=== PATIENT | male | born 1970 | race Caucasian/White ===

== ENCOUNTER 2017-09-14 07:13 | Emergency (ER) | payer BC ==
[2017-09-14 08:04] LABS: #Eosinphils 0.3 thou/uL (0.0-0.7); #Monocytes 0.8 thou/uL (0.11-0.59); #Neutrophils 4.2 thou/uL (1.40-6.50); %Basophils 0.6 % (0.0-1.0); %Eosinophils 4.3 % (0.0-10.0); %Lymphocytes 26.8 % (21.0-51.0); %Monocytes 10.5 % (0.0-10.0); %Neutrophils 57.7 % (42.0-75.0); Hemoglobin 16.4 g/dL (14.0-18.0); Mean Corpuscular HGB CONC 35.4 g/dL (32.0-36.0); Mean Corpuscular Hemoglobin 33.3 pg (27.0-31.0); Mean Corpuscular Volume 94.1 fL (78.0-98.0); Mean Platelet Volume 8.1 fL (7.4-10.4); Platelet Count 127 thou/uL (130-400); RBC Distribution Width 11.6 % (11.5-14.5); Red Blood Cell (RBC) Count 4.91 mill/uL (4.70-6.10); White Blood Cell (WBC) Count 7.3 thou/uL (4.8-10.8)
[2017-09-14 08:12] LABS: INR-International Normal Ratio 1.1; PTT 27.8 SEC (22.9-36.1); Prothrombin Time 14.4 SEC (12.0-14.7)
[2017-09-14 09:10] LABS: ALT (SGPT) 50 U/L (8-55); AST (SGOT) 51 U/L (5-34); Albumin 3.8 g/dL (3.5-5.0); Alkaline Phosphatase 74 U/L (40-150); Anion Gap 18 mmol/L (10-20); BUN (Urea Nitrogen) 8 mg/dL (8.9-20.6); CKMB 2.2 ng/mL (0-6.6); Calc. Creatinine Clearance 0 mL/min (70-130); Calcium 8.9 mg/dL (7.8-10.44); Carbon Dioxide 20 mmol/L (22-29); Chloride 105 mmol/L (98-107); Estimated GFR-MDRD Greater than 90; Globulin 2.8 g/dL (2.4-3.5); Glucose 97 mg/dL (70-105); Potassium 3.7 mmol/L (3.5-5.1); Protein, Total 6.6 g/dL (6.0-8.3); Sodium 139 mmol/L (136-145); Troponin I 0.013 ng/mL (< 0.028)
--- NOTE | 2017-09-14 09:17 | RAD ---
UPRIGHT PORTABLE CHEST 1 VIEW: Date: 09/14/17 HISTORY: 47-year-old male with history of chest pain. COMPARISON: 11/09/16. FINDINGS: Heart size is normal. The lungs are clear. No pneumonia, edema, or pleural effusion. IMPRESSION: No acute intrathoracic disease. POS: OFF
[2017-09-14 10:16] LABS: CK (CPK) 248 U/L (30-200)
== END 2017-09-14 10:11 | disposition short-term general hospital (02) ==
LOC: MADERS 07:13
DX: R07.2 Precordial pain (principal); F17.210 Nicotine dependence, cigarettes, uncomplicated; I25.2 Old myocardial infarction; Z79.899 Other long term (current) drug therapy; Z79.82 Long term (current) use of aspirin
CPT/HCPCS: 71045; 80053; 82553; 83880; 84484; 85025; 85610; 85730; 93005; 94760

== ENCOUNTER 2018-09-20 21:54 | Emergency (ER) | payer BC ==
[~2018-09-20 21:54] MED LIST: Iopamidol 370 76% 100 ML VIAL ONE
[2018-09-20 22:35] LABS: #Basophils 0.1 thou/uL (0.0-0.2); #Eosinphils 0.4 thou/uL (0.0-0.7); #Lymphocytes 3.4 thou/uL (1.20-3.40); #Monocytes 0.9 thou/uL (0.11-0.59); #Neutrophils 5.4 thou/uL (1.40-6.50); %Eosinophils 3.9 % (0.0-10.0); %Lymphocytes 33.1 % (21.0-51.0); %Monocytes 8.6 % (0.0-10.0); %Neutrophils 53.4 % (42.0-75.0); Hemoglobin 15.9 g/dL (14.0-18.0); Mean Corpuscular HGB CONC 33.5 g/dL (32.0-36.0); Mean Corpuscular Hemoglobin 32.4 pg (27.0-31.0); Mean Corpuscular Volume 96.8 fL (78.0-98.0); Mean Platelet Volume 7.4 fL (7.4-10.4); Platelet Count 155 thou/uL (130-400); RBC Distribution Width 12.1 % (11.5-14.5); Red Blood Cell (RBC) Count 4.92 mill/uL (4.70-6.10); White Blood Cell (WBC) Count 10.2 thou/uL (4.8-10.8)
[2018-09-20] MEDS ORDERED: Morphine 4 MG/ML VIAL ONE (22:44)
[2018-09-20 22:45] LABS: INR-International Normal Ratio 1.1
[2018-09-20 22:55] LABS: ALT (SGPT) 55 U/L (8-55); AST (SGOT) 52 U/L (5-34); Albumin 4.2 g/dL (3.5-5.0); Alkaline Phosphatase 106 U/L (40-150); Anion Gap 16 mmol/L (10-20); BUN (Urea Nitrogen) 10 mg/dL (8.9-20.6); Calc. Creatinine Clearance 0 mL/min (70-130); Carbon Dioxide 22 mmol/L (22-29); Chloride 106 mmol/L (98-107); Estimated GFR-MDRD 78; Globulin 3.3 g/dL (2.4-3.5); Glucose 106 mg/dL (70-105); Potassium 3.9 mmol/L (3.5-5.1); Protein, Total 7.5 g/dL (6.0-8.3); Sodium 140 mmol/L (136-145)
--- NOTE | 2018-09-20 23:55 | CT ---
CT CHEST, ABDOMEN AND PELVIS WITH CONTRAST: 09/20/18 Axial tomograms are obtained with multiplanar reconstruction following trauma protocol. INDICATIONS: Injury to right chest. CT CHEST: Lung grace are well aerated and clear. No evidence of infiltrate or effusion. No pneumothorax. Media stinum unremarkable. The bony thorax appears intact. IMPRESSION: No acute chest injury. CT ABDOMEN AND PELVIS: Liver shows decreased attenuation consistent with fatty infiltration. No evidence of liver, spleen, p ancreas or kidney injury. There is a densely calcified gallstone in the gallbladder fundus. There are bilateral renal cystic lesions with the largest seen in the anterior left kidney measuring up to 6 c m. Bowel loops unremarkable. No free fluid in the abdomen or pelvis. Aorta unremarkable. The spine and pelvis appear intact. IMPRESSION: 1. No acute intra-abdominal injury identified. 2. Cholelithiasis. 3. Bilateral renal cyst. 4. Hepatic steatosis. CT THORACIC AND LUMBAR SPINE: Sagittal and coronal images obtained. Thoracic and lumbar vertebrae maintain normal height and alignm ent. No evidence of vertebral body fracture identified. POS: OFF
== END 2018-09-21 01:26 | disposition home or self-care (01) ==
LOC: MADERS 21:54
DX: S30.1XXA Contusion of abdominal wall, initial encounter (principal); S20.211A Contusion of right front wall of thorax, initial encounter; I25.2 Old myocardial infarction; I10 Essential (primary) hypertension; F17.210 Nicotine dependence, cigarettes, uncomplicated; W17.89XA Other fall from one level to another, initial encounter; Y93.44 Activity, trampolining; Y99.8 Other external cause status
CPT/HCPCS: 36415; 71260; 74177; 80053; 85025; 85610; 96374; J2270; Q9967

== ENCOUNTER 2023-03-01 17:52 | Emergency (ER) | payer BC ==
[2023-03-01] MEDS ORDERED: Aspirin Chewable 81 MG TAB ONE (18:11)
[2023-03-01 18:31] LABS: ALT (SGPT) 37 U/L (8-55); AST (SGOT) 39 U/L (5-34); Albumin 4.5 g/dL (3.5-5.0); Alkaline Phosphatase 72 U/L (40-110); Anion Gap 18 mmol/L (10-20); BUN (Urea Nitrogen) 11 mg/dL (8.4-25.7); Bilirubin, Total 1.3 mg/dL (0.2-1.2); Calc. Creatinine Clearance 0 mL/min (70-130); Calcium 9.4 mg/dL (7.8-10.44); Carbon Dioxide 23 mmol/L (22-29); Chloride 102 mmol/L (98-107); Estimated GFR 92; Globulin 3.8 g/dL (2.4-3.5); Glucose 106 mg/dL (70-105); Magnesium 1.9 mg/dL (1.6-2.6); Potassium 3.7 mmol/L (3.5-5.1); Protein, Total 8.3 g/dL (6.0-8.3); Sodium 139 mmol/L (136-145)
[2023-03-01 18:34] LABS: Troponin I Less than 0.010 ng/mL (< 0.028)
[2023-03-01 18:37] LABS: #Basophils 0.1 thou/uL (0.0-0.2); #Eosinphils 0.3 thou/uL (0.0-0.7); #Lymphocytes 2.5 thou/uL (1.20-3.40); #Monocytes 0.9 thou/uL (0.11-0.59); #Neutrophils 4.5 thou/uL (1.40-6.50); %Basophils 1.3 % (0.0-1.0); %Eosinophils 3.8 % (0.0-10.0); %Lymphocytes 29.7 % (21.0-51.0); %Monocytes 11.4 % (0.0-10.0); %Neutrophils 53.8 % (42.0-75.0); Hematocrit 37.4 % (42.0-52.0); Hemoglobin 10.9 g/dL (14.0-18.0); Hypochromia SLIGHT = 6-15 cells (100X) (0-5/hpf); MDiff Complete? YES; Mean Corpuscular HGB CONC 29.2 g/dL (32.0-36.0); Mean Corpuscular Hemoglobin 25.3 pg (27.0-31.0); Mean Corpuscular Volume 86.7 fl (78.0-98.0); Mean Platelet Volume 8.1 fL (7.4-10.4); Platelet Adequacy Comment Appears Adequate; Platelet Count 135 10x3/uL (130-400); RBC Distribution Width 14.8 % (11.5-14.5); Red Blood Cell (RBC) Count 4.32 mill/uL (4.70-6.10); White Blood Cell (WBC) Count 8.3 10x3/uL (4.8-10.8)
[2023-03-01] MEDS ORDERED: Ondansetron PF 4 MG/2 ML Vial ONE (18:46)
[2023-03-01 19:10] LABS: Acetaminophen Less than 10 mcg/mL (10.0-30.0); Alcohol 18.5 mg/dL (Less than 10); Lipase 44 U/L (8-78); Salicylate Less than 8.0 mg/dL (15.0-30.0)
[2023-03-01 21:39] LABS: Troponin I Less than 0.010 ng/mL (< 0.028)
== END 2023-03-01 21:55 | disposition home or self-care (01) ==
LOC: MADERS 17:52
DX: K80.20 Calculus of gallbladder without cholecystitis without obstruction (principal); K76.0 Fatty (change of) liver, not elsewhere classified; N28.1 Cyst of kidney, acquired; I10 Essential (primary) hypertension; F10.10 Alcohol abuse, uncomplicated; F17.210 Nicotine dependence, cigarettes, uncomplicated
CPT/HCPCS: 71045; 74177; 80053; 80307; 83690; 83735; 83880; 84484; 85025; 93005; 96374; J2405